=== PATIENT | male | born 1955 | race Caucasian/White ===

== ENCOUNTER 2023-09-16 06:38 | Day surgery (SDC) | payer MEDICARE, BC ==
[~2023-09-16] VITALS: Ht 157.5 cm; Wt 74.3 kg
[~2023-09-16 06:38] MED LIST: LISI20 PO; LISI5 PO
--- NOTE | 2023-09-16 08:42 | NUR ---
09/16/23 0842 Kristin Nolan A PILLOW UNDER HEAD AND KNEES, RIGHT ARM SECURED ON PADDED ARM BOARD, LEFT ARM ON DOUBLE ARM BOARD, GEL UNDER HEALS.
[2023-09-16 10:29] VITALS: BP 98/67
--- NOTE | 2023-09-16 11:05 | NUR ---
09/16/23 1105 Ami Fuller PT'S IV WAS REMOVED WITH NO ISSUES AND INTACT. PT TOLERATED WELL. PT ASKED FOR SLING TO REMIND HIMSELF NOT TO USE IT. GAVE PT A SLING AND HELPED HIM TO PUT IT ON BEFORE DISCHARGE.
== END 2023-09-16 10:54 | disposition home or self-care (01) ==
LOC: ORSCSDS 06:38
PROVIDERS: Orthopaedic Surgery
PROC: 0RQT0ZZ Repair Left Carpometacarpal Joint, Open Approach (ICD-10-PCS; principal; 2023-09-16 08:00)
DX: M18.12 Unilateral primary osteoarthritis of first carpometacarpal joint, left hand (principal); I10 Essential (primary) hypertension; Z79.899 Other long term (current) drug therapy; Z87.891 Personal history of nicotine dependence
CPT/HCPCS: A9270; J0690; J1100; J1885; J2405; J2704; J3010; J7120